=== PATIENT | male | born 1950 | race Caucasian/White ===

== ENCOUNTER 2016-06-12 11:54 | Emergency (ER) | payer MEDICARE, MEDICAID ==
[~2016-06-12] VITALS: Ht 177.8 cm; Wt 60.0 kg
[~2016-06-12 11:54] MED LIST: ASPI81TA17 PO; BACL10TA PO; HYDR-3533 PO
[2016-06-12 11:56] VITALS: BP 125/75; PULSE 70; RESP 14; TEMP 98.3; O2SAT 96
[2016-06-12] MEDS ORDERED: IBUP-232 PO (12:56)
[2016-06-12] MEDS ORDERED: TRAM50TA PO (12:57)
--- NOTE | 2016-06-12 12:57 | PD ---
HPI Chief Complaint: Injury Time Seen by Provider: 12:22 Travel History International Travel<30 days: No Contact w/Intl Traveler<30days: No Traveled to known affect area: No History of Present Illness HPI Patient is a 65-year-old male presents emergency evaluation of left shoulder and bicep pain. Patient states he was lifting weights last Saturday subsequently noticing pain in his shoulder and bicep on , and Saturday he noticed a deformity in his bicep muscle. Patient has taken arthritis medication for the pain. He denies any weakness but has painful range of motion. Patient reports his pain as a 7 out of 10 at its worst. PFSH Past Medical History Hx Anticoagulant Therapy: Yes Social History Alcohol Use: Yes Tobacco Use: Yes (1-1/2 packs per day) Substance Use: No Allergies-Medications (Allergen,Severity, Reaction): Coded Allergies: No Known Allergies (Unverified , 12/13/14) Reported Meds & Prescriptions Reported Meds & Active Scripts Active Tramadol (Tramadol HCl) 50 Mg Tab 50 Mg PO Q6H PRN Ibuprofen 600 Mg Tab 600 Mg PO Q8HR PRN 10 Days Lortab 5 mg/325 mg (Hydrocodone/Acetaminophen 5 mg/325 mg) 1 Tab 1 Tab PO Q6H PRN Reported Aspirin EC Low Dose (Aspirin) 81 Mg Tab 81 Mg PO DAILY Lioresal (Baclofen) 10 Mg Tab 10 Mg PO TID Review of Systems Except as stated in HPI: all other systems reviewed are Neg Musculoskeletal: Positive: Myalgias, Pain, Other (muscle deformity) Physical Exam Narrative GENERAL: Well-nourished, well-developed patient. SKIN: Warm and dry. HEAD: Normocephalic. EYES: No scleral icterus. No injection or drainage. NECK: Supple, trachea midline. No JVD or lymphadenopathy. CARDIOVASCULAR: Regular rate and rhythm without murmurs, gallops, or rubs. RESPIRATORY: Breath sounds equal bilaterally. No accessory muscle use. GASTROINTESTINAL: Abdomen soft, non-tender, nondistended. MUSCULOSKELETAL: No cyanosis, or edema. Left bicep appears deformed. Full range of motion in left shoulder and elbow. Tenderness to palpation on anterior shoulder on the left. No other obvious deformities noted. Positive radial pulse, brisk less than 3 second capillary refill. 5/5 muscle strength in bilateral upper extremities. Negative Neer and Simmons BACK: Nontender without obvious deformity. No CVA tenderness. Data Data Last Documented VS Vital Signs Date Time Temp Pulse Resp B/P Pulse Ox O2 Delivery O2 Flow Rate FiO2 06/12/16 11:56 98.3 70 14 125/75 96 Room Air Orders Splint Or Brace Apply/Monitor (06/12/16 12:52) MDM Medical Decision Making Medical Screen Exam Complete: Yes Emergency Medical Condition: Yes Interpretation(s) Vital Signs Date Time Temp Pulse Resp B/P Pulse Ox O2 Delivery O2 Flow Rate FiO2 06/12/16 11:56 98.3 70 14 125/75 96 Room Air Differential Diagnosis Tendinitis versus dislocation versus fracture versus sprain versus strain versus tear Narrative Course Patient is a 65-year-old male presenting to emergency for evaluation of left shoulder and biceps pain. On exam it appears patient's left bicep tendon is torn. Patient is neurovascularly intact, he has full range of motion in the shoulder and elbow. Patient was placed in a sling, he will be referred to orthopedic surgery for further evaluation and management. Patient was encouraged to follow-up with his primary doctor as well, return to emergency department for any new or worsening symptoms. Patient verbalized understanding of these instructions. Patient is stable for discharge. Diagnosis Primary Impression: Biceps tendon tear Qualified Code: S46.112A - Biceps tendon tear, left, initial encounter Referrals: West Walker MD, Todd A. MD Orthopaedic Surgeon 3 days Patient Instructions: General Instructions, Repairs of the Biceps and Triceps Tendons (DC) Additional Instructions: Follow-up with orthopedic surgeon Follow-up with a primary care doctor Monitor blood pressure at home Return to emergency department for any new or worsening symptoms Take medications as directed Continue range of motion exercises, alternate heat and ice to affected area, avoid exacerbating activities Med/Other Pt SpecificInfo: Prescription(s) given Scripts Tramadol 50 Mg Tab50 Mg PO Q6H PRN (PAIN) #10 TAB Ref 0 Prov:Kanu Reyes MD 06/12/16 Ibuprofen 600 Mg Nuh150 Mg PO Q8HR PRN (PAIN) 10 Days Ref 0 Prov:Lori Mccloud 06/12/16 Disposition: 01 DISCHARGE HOME Condition: Stable Lori Mccloud Jun 12, 2016 12:57
== END 2016-06-12 13:12 | disposition home or self-care (01) ==
LOC: NEPB 11:54
DX: S46.212A Strain of muscle, fascia and tendon of other parts of biceps, left arm, initial encounter (principal); X50.9XXA Other and unspecified overexertion or strenuous movements or postures, initial encounter; Y93.B3 Activity, free weights; Y92.9 Unspecified place or not applicable
CPT/HCPCS: 99283